=== PATIENT | female | born 1985 | race Caucasian/White ===

== ENCOUNTER 2020-06-17 00:08 | Inpatient (IN) | payer MEDICAID ==
[~2020-06-17] VITALS: Ht 162.6 cm; Wt 82.3 kg
[2020-06-17] VITALS (9 sets, daily range): BP systolic 116–128; BP diastolic 63–83; Ht 162.6 cm; Wt 82.3 kg
[2020-06-17 00:49] LABS: BILIRUBIN 3+ (NEGATIVE); KETONE NEGATIVE (NEGATIVE); NITRITE NEGATIVE (NEGATIVE); UROBILINOGEN NORMAL mg/dL (< 2)
[2020-06-17 00:50] LABS: SQUAMOUS EPITHELIAL 0-5 HPF (0-4); WHITE CELLS - URINE 0-5 HPF (0-4)
[2020-06-17 00:51] LABS: BACTERIA FEW HPF (NONE SEEN)
[2020-06-17 01:08] LABS: BASOPHILS 1.2 % (0-2); HEMATOCRIT 44.9 % (36.0-48.0); HEMOGLOBIN 14.6 g/dL (12-16); IMMATURE GRANULOCYTES 0.2 % (0-5); LYMPHOCYTE ABS# 2.23 10x3/uL (1.18-3.74); LYMPHOCYTES 38.4 % (15-50); MCHC 32.5 g/dL (31.0-37.0); MCV 89.3 fL (80.0-100.0); MEAN PLATELET VOLUME 10.3 fL (7.4-10.4); MONOCYTES 15.9 % (2-11); NEUTROPHIL ABS# 2.51 10x3/uL (1.56-6.13); NEUTROPHILS 43.3 % (40-80); PLATELET COUNT 242 10x3/uL (130-400); RBC 5.03 10x6/uL (4.00-5.40); WBC 5.8 10x3/uL (4.8-10.8)
[2020-06-17 01:18] LABS: CALC OSMOLALITY 269 mosm/kg (275-300); CALCIUM 9.5 mg/dL (8.5-10.1); CARBON DIOXIDE 26.4 mmol/L (21.0-32.0); CHLORIDE - SERUM 99 mmol/L (98-107); CREATININE - SERUM 0.9 mg/dL (0.6-1.3); GLUCOSE 110 mg/dL (74-106); POTASSIUM - SERUM 4.1 mmol/L (3.5-5.1); SODIUM 135 mmol/L (136-145); UREA NITROGEN 10 mg/dL (7-18); eGFR NON AFRICAN AMERICAN 75 mL/min (90-120)
[2020-06-17 01:28] LABS: APTT 29.1 SECONDS (22.8-39.4); INR 1.2 (0.85-1.17); PROTIME 14.1 SECONDS (11.6-15.0)
[2020-06-17 01:30] LABS: ALKALINE PHOSPHATASE 262 U/L (30-120); BILIRUBIN - TOTAL 3.64 mg/dL (0.2-1.3); PROTEIN - SERUM 7.6 g/dL (6.4-8.2)
[2020-06-17 01:35] LABS: ALT (SGPT) 1917 U/L (10-68)
[2020-06-17 01:37] LABS: INFLUENZA TYPE A NEGATIVE (NEGATIVE); INFLUENZA TYPE B NEGATIVE (NEGATIVE); SARS-CoV-2 ANTIGEN NEGATIVE- SARS-COV-2 (NEGATIVE)
[2020-06-17 01:53] LABS: UDS - AMPHET POSITIVE QUAL (NEGATIVE); UDS - BARB NEGATIVE QUAL (NEGATIVE); UDS - BENZO NEGATIVE QUAL (NEGATIVE); UDS - COCAINE NEGATIVE QUAL (NEGATIVE); UDS - OPIATE NEGATIVE QUAL (NEGATIVE); UDS - PCP NEGATIVE QUAL (NEGATIVE); UDS - THC POSITIVE QUAL (NEGATIVE)
--- NOTE | 2020-06-17 03:15 | NUR ---
PT FROM ER VIA W/C, PT AAO X 4, RESP EVEN AND UNLABORED, NO DISTRESS NOTED, CL IN REACH, SR UP X 1.
[2020-06-17 05:48] LABS: BASOPHILS 0.8 % (0-2); HEMATOCRIT 40.6 % (36.0-48.0); HEMOGLOBIN 13.1 g/dL (12-16); IMMATURE GRANULOCYTES 0.4 % (0-5); LYMPHOCYTE ABS# 2.26 10x3/uL (1.18-3.74); LYMPHOCYTES 44.7 % (15-50); MCH 28.7 pg (26.0-34.0); MCHC 32.3 g/dL (31.0-37.0); MEAN PLATELET VOLUME 10.1 fL (7.4-10.4); MONOCYTES 15.2 % (2-11); NEUTROPHIL ABS# 1.92 10x3/uL (1.56-6.13); NEUTROPHILS 37.9 % (40-80); PLATELET COUNT 218 10x3/uL (130-400); RBC 4.56 10x6/uL (4.00-5.40); WBC 5.1 10x3/uL (4.8-10.8)
[2020-06-17 06:13] LABS: ALBUMIN 2.6 g/dL (3.4-5.0); ALKALINE PHOSPHATASE 240 U/L (30-120); BILIRUBIN - TOTAL 3.92 mg/dL (0.2-1.3); CALC OSMOLALITY 276 mosm/kg (275-300); CALCIUM 9.2 mg/dL (8.5-10.1); CARBON DIOXIDE 25.5 mmol/L (21.0-32.0); CHLORIDE - SERUM 105 mmol/L (98-107); CREATININE - SERUM 0.8 mg/dL (0.6-1.3); GLUCOSE 127 mg/dL (74-106); PHOSPHOROUS 2.5 mg/dL (2.5-4.9); PROTEIN - SERUM 6.9 g/dL (6.4-8.2); SODIUM 138 mmol/L (136-145); UREA NITROGEN 10 mg/dL (7-18); eGFR NON AFRICAN AMERICAN 86 mL/min (90-120)
[2020-06-17 06:15] LABS: ALT (SGPT) 1857 U/L (10-68)
[2020-06-18 01:04] VITALS: BP 106/58
--- NOTE | 2020-06-18 05:17 | NUR ---
I have reviewed this patient and I concur with the Shift Assessment completed by the Licensed Practical Nurse today this shift.
[2020-06-18 05:42] LABS: BASOPHILS 1.9 % (0-2); EOSINOPHILS 2.5 % (0-7); HEMATOCRIT 43.2 % (36.0-48.0); HEMOGLOBIN 13.9 g/dL (12-16); IMMATURE GRANULOCYTES 0.2 % (0-5); LYMPHOCYTE ABS# 2.19 10x3/uL (1.18-3.74); LYMPHOCYTES 38.6 % (15-50); MCH 28.9 pg (26.0-34.0); MCHC 32.2 g/dL (31.0-37.0); MCV 89.8 fL (80.0-100.0); MEAN PLATELET VOLUME 10.5 fL (7.4-10.4); MONOCYTES 13.4 % (2-11); NEUTROPHIL ABS# 2.46 10x3/uL (1.56-6.13); NEUTROPHILS 43.4 % (40-80); PLATELET COUNT 239 10x3/uL (130-400); RBC 4.81 10x6/uL (4.00-5.40); RDW 14.3 % (11.5-14.5); WBC 5.7 10x3/uL (4.8-10.8)
[2020-06-18 06:32] LABS: ALBUMIN 2.8 g/dL (3.4-5.0); ALKALINE PHOSPHATASE 264 U/L (30-120); BILIRUBIN - TOTAL 4.49 mg/dL (0.2-1.3); CALC OSMOLALITY 268 mosm/kg (275-300); CALCIUM 9.5 mg/dL (8.5-10.1); CARBON DIOXIDE 26.5 mmol/L (21.0-32.0); CHLORIDE - SERUM 103 mmol/L (98-107); CREATININE - SERUM 0.8 mg/dL (0.6-1.3); GLUCOSE 87 mg/dL (74-106); MAGNESIUM - SERUM 2.1 mg/dL (1.8-2.4); PHOSPHOROUS 2.7 mg/dL (2.5-4.9); POTASSIUM - SERUM 4.4 mmol/L (3.5-5.1); PROTEIN - SERUM 7.7 g/dL (6.4-8.2); SODIUM 136 mmol/L (136-145); UREA NITROGEN 8 mg/dL (7-18); eGFR NON AFRICAN AMERICAN 86 mL/min (90-120)
[2020-06-18 06:47] LABS: ALT (SGPT) 2487 U/L (10-68)
[2020-06-18 07:13] LABS: INR 1.13 (0.85-1.17); PROTIME 13.4 SECONDS (11.6-15.0)
[2020-06-18 08:51] VITALS: BP 103/55
[2020-06-18 09:12] LABS: HEPATITIS C ANTIBODY <0.1 (0.0-0.9)
[2020-06-18 10:12] LABS: ANA REFLEX - DIRECT Negative (Negative)
[2020-06-18 13:06] VITALS: BP 103/58
[2020-06-18 15:51] VITALS: BP 105/62
[2020-06-18 20:19] VITALS: BP 95/55
[2020-06-19 00:59] VITALS: BP 108/64
[2020-06-19 05:47] VITALS: BP 93/65
[2020-06-19 06:50] LABS: BASOPHILS 1.1 % (0-2); EOSINOPHILS 1.9 % (0-7); HEMATOCRIT 41.3 % (36.0-48.0); HEMOGLOBIN 13.2 g/dL (12-16); IMMATURE GRANULOCYTES 0.6 % (0-5); LYMPHOCYTE ABS# 2.55 10x3/uL (1.18-3.74); LYMPHOCYTES 47.3 % (15-50); MCH 28.8 pg (26.0-34.0); MCV 90.2 fL (80.0-100.0); MEAN PLATELET VOLUME 10.5 fL (7.4-10.4); MONOCYTES 11.7 % (2-11); NEUTROPHIL ABS# 2.02 10x3/uL (1.56-6.13); NEUTROPHILS 37.4 % (40-80); PLATELET COUNT 273 10x3/uL (130-400); RBC 4.58 10x6/uL (4.00-5.40); RDW 14.8 % (11.5-14.5); WBC 5.4 10x3/uL (4.8-10.8)
[2020-06-19 07:28] LABS: ALBUMIN 2.4 g/dL (3.4-5.0); ALKALINE PHOSPHATASE 225 U/L (30-120); BILIRUBIN - TOTAL 4.93 mg/dL (0.2-1.3); CALC OSMOLALITY 270 mosm/kg (275-300); CALCIUM 8.9 mg/dL (8.5-10.1); CARBON DIOXIDE 24.1 mmol/L (21.0-32.0); CHLORIDE - SERUM 104 mmol/L (98-107); CREATININE - SERUM 0.7 mg/dL (0.6-1.3); GLUCOSE 86 mg/dL (74-106); MAGNESIUM - SERUM 1.9 mg/dL (1.8-2.4); PHOSPHOROUS 2.6 mg/dL (2.5-4.9); POTASSIUM - SERUM 4.2 mmol/L (3.5-5.1); PROTEIN - SERUM 6.8 g/dL (6.4-8.2); SODIUM 137 mmol/L (136-145); UREA NITROGEN 8 mg/dL (7-18); eGFR NON AFRICAN AMERICAN > 90 mL/min (90-120)
[2020-06-19 07:29] LABS: ALT (SGPT) 2280 U/L (10-68)
[2020-06-19 07:52] LABS: INR 1.18 (0.85-1.17); PROTIME 13.9 SECONDS (11.6-15.0)
[2020-06-19 08:26] VITALS: BP 114/67
[2020-06-19 15:20] VITALS: BP 98/57
[2020-06-19 21:01] VITALS: BP 168/69
[2020-06-20 07:09] LABS: INR 1.14 (0.85-1.17); PROTIME 13.6 SECONDS (11.6-15.0)
[2020-06-20 07:20] LABS: HEMATOCRIT 39.5 % (36.0-48.0); HEMOGLOBIN 12.7 g/dL (12-16); LYMPHOCYTE ABS# 2.58 10x3/uL (1.18-3.74); MCHC 32.2 g/dL (31.0-37.0); MCV 90.2 fL (80.0-100.0); MEAN PLATELET VOLUME 10.3 fL (7.4-10.4); NEUTROPHIL ABS# 2.87 10x3/uL (1.56-6.13); PLATELET COUNT 265 10x3/uL (130-400); RBC 4.38 10x6/uL (4.00-5.40); WBC 6.2 10x3/uL (4.8-10.8)
[2020-06-20 07:46] LABS: ALBUMIN 2.3 g/dL (3.4-5.0); ALKALINE PHOSPHATASE 228 U/L (30-120); BILIRUBIN - TOTAL 5.75 mg/dL (0.2-1.3); CALC OSMOLALITY 271 mosm/kg (275-300); CALCIUM 9.3 mg/dL (8.5-10.1); CARBON DIOXIDE 23.6 mmol/L (21.0-32.0); CHLORIDE - SERUM 105 mmol/L (98-107); CREATININE - SERUM 0.6 mg/dL (0.6-1.3); GLUCOSE 102 mg/dL (74-106); PHOSPHOROUS 2.5 mg/dL (2.5-4.9); PROTEIN - SERUM 6.8 g/dL (6.4-8.2); SODIUM 137 mmol/L (136-145); UREA NITROGEN 8 mg/dL (7-18); eGFR NON AFRICAN AMERICAN > 90 mL/min (90-120)
[2020-06-20 07:47] LABS: ALT (SGPT) 2051 U/L (10-68)
[2020-06-20 07:49] LABS: EOSINOPHILS 2 % (0-7); LYMPHOCYTES 48 % (15-50); MONOCYTES 1 % (2-11); NEUTROPHILS 49 % (40-80)
[2020-06-20 07:50] LABS: PLATELET ESTIMATE NORMAL
[2020-06-20 08:27] VITALS: BP 99/61
[2020-06-20 12:10] VITALS: BP 103/54
[2020-06-20 16:06] VITALS: BP 100/59
[2020-06-20 20:00] VITALS: BP 107/58
--- NOTE | 2020-06-20 20:00 | NUR ---
INITIAL ROUNDS AND ASSESSMENT COMPLETED. PT RESTING IN BED. CALL LIGHT IN REACH. SEE ASSESSMENT.
[2020-06-21 05:22] VITALS: BP 107/62
[2020-06-21 08:01] LABS: BASOPHILS 1.1 % (0-2); EOSINOPHILS 1.6 % (0-7); HEMATOCRIT 38.4 % (36.0-48.0); HEMOGLOBIN 12.2 g/dL (12-16); IMMATURE GRANULOCYTES 0.5 % (0-5); LYMPHOCYTE ABS# 2.89 10x3/uL (1.18-3.74); LYMPHOCYTES 47.2 % (15-50); MCH 28.6 pg (26.0-34.0); MCHC 31.8 g/dL (31.0-37.0); MCV 89.9 fL (80.0-100.0); MEAN PLATELET VOLUME 10.3 fL (7.4-10.4); MONOCYTES 12.7 % (2-11); NEUTROPHIL ABS# 2.25 10x3/uL (1.56-6.13); NEUTROPHILS 36.9 % (40-80); PLATELET COUNT 279 10x3/uL (130-400); RBC 4.27 10x6/uL (4.00-5.40); RDW 15.3 % (11.5-14.5); WBC 6.1 10x3/uL (4.8-10.8)
[2020-06-21 08:14] LABS: ALBUMIN 2.2 g/dL (3.4-5.0); ALKALINE PHOSPHATASE 216 U/L (30-120); BILIRUBIN - TOTAL 5.19 mg/dL (0.2-1.3); CALC OSMOLALITY 271 mosm/kg (275-300); CALCIUM 9.5 mg/dL (8.5-10.1); CARBON DIOXIDE 25.3 mmol/L (21.0-32.0); CHLORIDE - SERUM 104 mmol/L (98-107); CREATININE - SERUM 0.7 mg/dL (0.6-1.3); GLUCOSE 101 mg/dL (74-106); MAGNESIUM - SERUM 1.9 mg/dL (1.8-2.4); PHOSPHOROUS 2.6 mg/dL (2.5-4.9); PROTEIN - SERUM 6.6 g/dL (6.4-8.2); SODIUM 137 mmol/L (136-145); UREA NITROGEN 7 mg/dL (7-18); eGFR NON AFRICAN AMERICAN > 90 mL/min (90-120)
[2020-06-21 08:15] LABS: ALT (SGPT) 1627 U/L (10-68)
--- NOTE | 2020-06-21 08:29 | NUR ---
AM MED GIVEN, PT RR EVEN NON LABORED. NO NEEDS VOICED AT THIS TIME. PT ASKED ABOUT PAIN MEDICATION, INSTRUCTION GIVEN REGARDING FREQUENCY, PT STATES UNDERSTANDING. CLWR.
[2020-06-21 08:45] LABS: INR 1.17 (0.85-1.17); PROTIME 13.8 SECONDS (11.6-15.0)
--- NOTE | 2020-06-21 14:22 | NUR ---
PT TOOK SHOWER WITHOUT ASSISTANCE, TOLERATED WELL. NEW LINENS PLACED ON BED. NO FURTHER NEEDS VOICED, CLWR.
[2020-06-21] MEDS ORDERED: ZOFRAN ODT4 MG/UDTAB PO (15:27)
--- NOTE | 2020-06-21 15:44 | NUR ---
PT TO BE D/C HOME TODAY, PT AWARE AND AGREES TO PLAN OF CARE. PT REQUEST PAIN MEDICATION AT THIS TIME. ALIYAH MARTIN AWARE. PT TO RECEIVE DOSE OF PAIN MEDICATION PRIOR TO LEAVING. NO FURTHER NEEDS VOICED. CLWR.
--- NOTE | 2020-06-21 16:16 | NUR ---
D/C INSTRUCTIONS GIVEN TO PT AT THIS TIME, IV REMOVED, CATHETER INTACT, DRESSING APPLIED. PT DENIES ANY QUESTIONS. ALL BELONGINGS GATHERED AT THIS TIME.
--- NOTE | 2020-06-21 17:33 | NUR ---
PT WHEELED TO PRIVATE VEHICLE AT THIS TIME, ALL BELONGINGS WITH PT TIME OF D/C. NO DISTRESS NOTED ON DEPARTURE.
== END 2020-06-21 17:36 | disposition home or self-care (01) | DRG 443 ==
LOC: D.ER 00:08 → D.M2 02:23
PROVIDERS: Emergency Medicine; Internal Medicine Gastroenterology; ADMIT Emergency Medicine; ATTEND Emergency Medicine
DX: B15.9 Hepatitis A without hepatic coma (principal); Z20.822 Contact with and (suspected) exposure to COVID-19; G40.909 Epilepsy, unspecified, not intractable, without status epilepticus; F20.9 Schizophrenia, unspecified; F15.90 Other stimulant use, unspecified, uncomplicated; Z72.0 Tobacco use